=== PATIENT | male | born 1965 | race Caucasian/White ===

== ENCOUNTER 2023-08-26 01:20 | Emergency (ER) | payer OTHER ==
[~2023-08-26] VITALS: Ht 172.7 cm; Wt 104.3 kg
[2023-08-26 02:19] LABS: BASOPHILS # (AUTO) 0.1 10^3/uL (0.0-0.1); BASOPHILS % (AUTO) 1 % (0-10); EOSINOPHILS % (AUTO) 1 % (0-10); HEMATOCRIT 43 % (40-54); LYMPHOCYTES # (AUTO) 2.1 10^3/uL (1.0-4.0); LYMPHOCYTES % (AUTO) 29 % (12-44); MEAN CORPUSCULAR HEMOGLOBIN 31 pg (25-34); MEAN CORPUSCULAR HGB CONC 35 g/dL (32-36); MEAN CORPUSCULAR VOLUME 90 fL (80-99); MEAN PLATELET VOLUME 9.6 fL (9.0-12.2); MONOCYTES # (AUTO) 0.6 10^3/uL (0.0-1.0); MONOCYTES % (AUTO) 8 % (0-12); NEUTROPHILS # (AUTO) 4.4 10^3/uL (1.8-7.8); NEUTROPHILS % (AUTO) 61 % (42-75); PLATELET COUNT 246 10^3/uL (130-400); WHITE BLOOD COUNT 7.3 10^3/uL (4.3-11.0)
[2023-08-26 02:20] VITALS: BP_SYST 112; BP_SYST 121; BP_SYST 139; BP_DIAS 76; BP_DIAS 80; BP_DIAS 96
[2023-08-26 02:31] LABS: CHLORIDE 104 MMOL/L (98-107); POTASSIUM 3.8 MMOL/L (3.6-5.0); SODIUM 139 MMOL/L (135-145)
[2023-08-26 02:32] LABS: CALCIUM 9.5 MG/DL (8.5-10.1); GLUCOSE 120 MG/DL (70-105)
[2023-08-26 02:34] LABS: CARBON DIOXIDE 22 MMOL/L (21-32)
[2023-08-26 02:36] LABS: CREATININE SERUM 1.28 MG/DL (0.60-1.30); GFR ESTIMATED 65
[2023-08-26 02:37] LABS: BUN/CREATININE RATIO 13
[2023-08-26 02:39] LABS: MAGNESIUM 2.1 MG/DL (1.6-2.4)
--- NOTE | 2023-08-26 02:41 | ED Syncope ---
General Chief Complaint: Dizziness/Syncope Stated Complaint: FAINTED,SWEATING Nursing Triage Note: PT AMB TO [facility] 2 WITH CC OF SYNCOPAL EPSIODE. PT REPORTS WAS DRIVING WHEN HE BECAME DIAPHORETIC AND NAUSEOUS. PT AT BEDSIDE REPORTS PT WAS ASKED TO LEGAL TECHNICIAN AND LOC. PT DENIES CHEST PAIN OR SOA. PT A&OX4 Source of Information: Patient, Family Exam Limitations: No Limitations History of Present Illness Date Seen by Provider: Aug 26, 2023 Time Seen by Provider: 01:50 Past [id number] Hx Patient Social History Tobacco Use?: Yes Smokeless Tobacco Frequency: Current Everyday User Substance use?: No Alcohol Use?: Yes Alcohol type: Beer Alcohol Frequency: Once in a while Pt feels they are or have been: No Past Medical History Surgery/Hospitalization HX: HTN, Physical Exam Vital Signs Vital Signs - First Documented 08/26/23 01:40 Temp 36.9 Pulse 81 Resp 18 B/P (MAP) 116/82 (93) Pulse Ox 98 O2 Delivery Room Air Capillary Refill : Less Than 3 Seconds Height, Weight, BMI Height: '" Weight: lbs. oz. kg; 34.00 BMI Method: Progress/Results/Core Measures Results/Orders Lab Results Laboratory Tests Test 08/26/23 02:09 Range/Units White Blood Count 7.3 4.3-11.0 10^3/uL Red Blood Count 4.79 4.30-5.52 10^6/uL Hemoglobin 15.0 13.3-17.7 g/dL Hematocrit 43 40-54 % Mean Corpuscular Volume 90 80-99 fL Mean Corpuscular Hemoglobin 31 25-34 pg Mean Corpuscular Hemoglobin Concent 35 32-36 g/dL Red Cell Distribution Width 12.3 10.0-14.5 % Platelet Count 246 130-400 10^3/uL Mean Platelet Volume 9.6 9.0-12.2 fL Immature Granulocyte % (Auto) 1 % Neutrophils (%) (Auto) 61 42-75 % Lymphocytes (%) (Auto) 29 12-44 % Monocytes (%) (Auto) 8 0-12 % Eosinophils (%) (Auto) 1 0-10 % Basophils (%) (Auto) 1 0-10 % Neutrophils # (Auto) 4.4 1.8-7.8 10^3/uL Lymphocytes # (Auto) 2.1 1.0-4.0 10^3/uL Monocytes # (Auto) 0.6 0.0-1.0 10^3/uL Eosinophils # (Auto) 0.0 0.0-0.3 10^3/uL Basophils # (Auto) 0.1 0.0-0.1 10^3/uL Immature Granulocyte # (Auto) 0.1 0.0-0.1 10^3/uL Sodium Level 139 135-145 MMOL/L Potassium Level 3.8 3.6-5.0 MMOL/L Chloride Level 104 98-107 MMOL/L Carbon Dioxide Level 22 21-32 MMOL/L Anion Gap 13 5-14 MMOL/L Blood Urea Nitrogen 16 7-18 MG/DL Creatinine 1.28 0.60-1.30 MG/DL Estimat Glomerular Filtration Rate 65 BUN/Creatinine Ratio 13 Glucose Level 120 H 70-105 MG/DL Calcium Level 9.5 8.5-10.1 MG/DL Magnesium Level 2.1 1.6-2.4 MG/DL Troponin I < 0.028 <0.028 NG/ML Serum Alcohol < 10 <10 MG/DL My Orders Orders - CLYDE BRADFORD MD Ed Iv/Invasive Line Start (08/26/23 02:12) Ekg Tracing (08/26/23 02:12) Monitor-Rhythm Ecg Trace Only (08/26/23 02:12) Orthostatic Vital Signs (Adult (08/26/23 02:12) Alcohol (08/26/23 02:12) Basic Metabolic Panel (08/26/23 02:12) Cbc And Automated Diff (08/26/23 02:12) Magnesium (08/26/23 02:12) Troponin I Maryann (08/26/23 02:12) Vital Signs/I&O 08/26/23 08/26/23 01:40 02:20 Temp 36.9 Pulse 81 80 89 85 Resp 18 B/P (MAP) 116/82 (93) 121/76 (91) 139/96 (110) 112/80 (91) Pulse Ox 98 O2 Delivery Room Air Blood Pressure Mean: 91 Initial ECG Impression Date: Aug 26, 2023 Initial ECG Impression Time: 02:14 Initial ECG Rate: 71 Initial ECG Rhythm: Normal Sinus Initial ECG Intervals: Normal Initial ECG Impression: Normal Comment Normal sinus rhythm with no ST elevation or depression. No abnormal intervals or axis deviation. Departure Impression Primary Impression: Syncope Qualified Codes: R55 - Syncope and collapse Disposition: 01 HOME, SELF-CARE Condition: Stable Departure-Patient Inst. Decision time for Depature: 03:33 Referrals: VAHID SALDAÑA MD (PCP/Family) Primary Care Physician Patient Instructions: Syncope (Fainting) (DC) Add. Discharge Instructions: The exact cause of your syncope (passing out) is uncertain at this time. Your work-up in the emergency room was unremarkable. Drink plenty of clear liquids to stay well-hydrated. Avoid the use of alcohol or any other sedating or mind altering substances until you have further evaluation by your primary care provider. Follow-up with your primary care provider as soon as possible. Discuss further work-up which might include cardiac monitoring. Avoid activities that could place you or others at risk should you have another episode. Such activities may include using heights such as ladders, driving, swimming, use of machinery, etc. If you feel another episode coming on, stop what you are doing and immediately find a safe place to sit or lie down. Return to the emergency room if you have repeated episodes or other significant symptoms. All discharge instructions reviewed with patient and/or family. Voiced understanding. CLYDE BRADFORD MD Aug 26, 2023 02:40
[2023-08-26 03:48] VITALS: BP 125/79
== END 2023-08-26 03:48 | disposition home or self-care (01) ==
LOC: ER 01:26
DX: R55 Syncope and collapse (principal); F17.200 Nicotine dependence, unspecified, uncomplicated
CPT/HCPCS: 80048; 83735; 84484; 85025; 93005; 93041; 99284; G0480; 36415; 80320